=== PATIENT | male | born 1935 | race Asian ===

== ENCOUNTER → 2019-10-18 | Outpatient (CLI) | payer OTHER ==
[~2019-10-18] MED LIST: ACETAMINOPHEN325 MG PO; ALLOPURINOL 10100 M1 PO; ELIQUIS2.5 MG PO; FLOMAX0.4 MG PO; LASIX 40 MG TAB40 M1 PO; LEVOXYL50 MCG PO; NEURONTIN100 MG PO; SPIRONOLACTONE25 MG PO
== END ==
LOC: M.PC 10-04 10:10
DX: I69.354 Hemiplegia and hemiparesis following cerebral infarction affecting left non-dominant side (principal)